=== PATIENT | male | born 1960 | race Caucasian/White ===

== ENCOUNTER → 2017-08-20 | Outpatient (CLI) | payer OTHER ==
[~2017-08-20] MED LIST: AMOCLA875 PO; ATEN100; ATEN100 PO; ATOR40TA PO; CEPH500 PO; HYDACE5; HYDACE5 PO; HYDR1TAB94 PO; IBUP800 PO; LISI5 PO; PSEU120ER PO; RXCEPH500 PO; TRAM50 PO; TRAZ100; Veetids 500500 MG PO
[2017-08-20 17:57] LABS: BASOPHILS ABSOLUTE AUTO 0.02 K/mm3 (0.00-0.23); BASOPHILS PERCENT AUTO 0 % (0-2); EOSINOPHILS ABSOLUTE AUTO 0.12 K/mm3 (0.00-0.68); EOSINOPHILS PERCENT AUTO 2 % (0-6); Hematocrit 40.7 % (37.0-53.0); Hemoglobin 14.1 g/dL (13.5-17.5); IMMATURE GRAN ABSOLUTE AUTO 0.01 K/mm3 (0.00-0.10); IMMATURE GRAN PERCENT AUTO 0 % (0-1); LYMPHOCYTES ABSOLUTE AUTO 2.01 K/mm3 (0.84-5.20); LYMPHOCYTES PERCENT AUTO 38 % (21-46); MONOCYTES ABSOLUTE AUTO 0.32 K/mm3 (0.16-1.47); MONOCYTES PERCENT AUTO 6 % (4-13); Mean Corpuscular HGB 31.6 pg (26.0-34.0); Mean Corpuscular HGB Conc 34.6 g/dL (31.5-36.5); Mean Corpuscular Volume 91 fL (80-100); Mean Platelet Volume 11.6 fL (9.1-12.4); NEUTROPHILS PERCENT AUTO 53 % (41-73); Platelet Count 224 K/mm3 (150-400); RDW Coefficient Variation 12.3 % (11.7-14.2); RDW Standard Deviation 40.9 fL (35.1-46.3); Red Blood Cell Count 4.46 M/mm3 (4.30-5.90); White Blood Cell Count 5.28 K/mm3 (4.00-11.30)
[2017-08-20 18:07] LABS: Alanine Aminotransfer (ALT/SGP 78 U/L (12-78); Albumin, Blood 3.8 g/dL (3.4-5.0); Albumin/Globulin Ratio 1.1 (0.8-1.8); Alk Phos 63 U/L (40-126); Anion Gap 9 mmol/L (6-16); Aspartate Aminotrans (AST/SGOT 70 U/L (12-37); Bilirubin, Total 0.8 mg/dL (0.1-1.0); Blood Urea Nitrogen 10 mg/dL (8-24); Bun/Creatinine Ratio 11.4 (12.0-20.0); CO2, Blood 29 mmol/L (21-32); Calcium, Blood 9.1 mg/dL (8.5-10.1); Chloride, Blood 102 mmol/L (98-108); Creatinine, Blood 0.88 mg/dL (0.60-1.20); Globulin, Blood 3.6 g/dL (2.2-4.0); Glomerular Filtration Rate >60 (60-); Glucose, Blood 106 mg/dL (70-99); Magnesium, Blood 1.7 mg/dL (1.6-2.4); Potassium, Blood 4.1 mmol/L (3.5-5.5); Sodium, Blood 140 mmol/L (136-145); Total Protein, Blood 7.4 g/dL (6.4-8.2)
== END | disposition home or self-care (01) ==
LOC: LAB EV 17:51 → LAB SHORT 17:51
PROVIDERS: Internal Medicine
DX: R19.7 Diarrhea, unspecified (principal)
CPT/HCPCS: 80053; 83735; 85025

== ENCOUNTER 2017-09-16 09:01 | Day surgery (SDC) | payer OTHER | END 2017-09-16 11:15 | disposition home or self-care (01) | LOC: CT 09:01 → ORD 09:01 → CT 10:00 → ORD 11:15 | DX: R06.02 Shortness of breath (principal); R07.9 Chest pain, unspecified; Z53.8 Procedure and treatment not carried out for other reasons; I10 Essential (primary) hypertension; E78.5 Hyperlipidemia, unspecified; F41.9 Anxiety disorder, unspecified; Z87.891 Personal history of nicotine dependence ==

== ENCOUNTER 2020-06-05 05:51 | Day surgery (SDC) | payer OTHER ==
[~2020-06-05] VITALS: Ht 175.3 cm; Wt 104.5 kg
[~2020-06-05 05:51] MED LIST changes: +ALBU90OI INH; +CLON1 PO; +CLOP75 PO; +DICLOFENAC SOD100 GM TP; +LOSA50 PO
--- NOTE | 2020-06-05 09:45 | NUR ---
PT BACK TO RECOVERY ROOM VIA RECLINER AFTER PROCEDURE. RIGHT RADIAL SITE WITH TR BAND IN PLACE. PT ALERT AND ORIENTED, DENIES PAIN OR NEEDS. VSS. REPORT FROM SOLITARIO ZAYAS.
--- NOTE | 2020-06-05 10:11 | NUR ---
TR BAND DEFLATION STARTED, ARM BOARD REMAINS ON FOR SUPPORT. WILL CONTINUE TO MONITOR.
--- NOTE | 2020-06-05 11:01 | NUR ---
TR BAND HAS BEEN FULLY DEFLATED. RIGHT RADIAL SITE SOFT AND NON-TENDER. NO BLEEDING OR SWELLING TO SITE. PT ABLE TO AMBULATE TO AND FROM BATHROOM WITHOUT ASSISTANCE.
--- NOTE | 2020-06-05 11:40 | NUR ---
IC DC'D, CATH INTACT. PT VERBALIZED UNDERSTANDING OF D/C INSTRUCTIONS AND FOLLOW UP INFORMATION. OUT TO CAR VIA WHEELCHAIR, DENIES PAIN OR DISCOMFORT AT TIME OF DISCHARGE
== END 2020-06-05 12:00 | disposition home or self-care (01) ==
LOC: MHTC 05:51
DX: R07.89 Other chest pain (principal); R94.39 Abnormal result of other cardiovascular function study; I11.0 Hypertensive heart disease with heart failure; I50.9 Heart failure, unspecified; E78.00 Pure hypercholesterolemia, unspecified; E66.9 Obesity, unspecified; Z79.82 Long term (current) use of aspirin; Z88.5 Allergy status to narcotic agent; Z88.8 Allergy status to other drugs, medicaments and biological substances; Z87.891 Personal history of nicotine dependence; Z79.02 Long term (current) use of antithrombotics/antiplatelets; Z68.33 Body mass index [BMI] 33.0-33.9, adult
CPT/HCPCS: 85347; 93458; 93571; 99152; 99153; C1769; C1887; C1894; J0153; J1644; J2250; J3010; J7030; J7050; Q9967

== ENCOUNTER 2020-06-13 07:37 | Day surgery (SDC) | payer OTHER ==
--- NOTE | 2020-06-13 10:03 | NUR ---
Patient up to Ambulate independently. Gait steady. Discharge instructions reviewed with patient. Patient verbalizes understanding. Copy given to patient to take home. Discharged via AMBULATION to private car for ride home.
== END 2020-06-13 22:38 | disposition home or self-care (01) ==
LOC: ORD 07:37 → CT 07:37 → ORD 22:38
DX: R07.9 Chest pain, unspecified (principal); I10 Essential (primary) hypertension; E78.5 Hyperlipidemia, unspecified; Z79.82 Long term (current) use of aspirin; Z88.8 Allergy status to other drugs, medicaments and biological substances
CPT/HCPCS: 75574; Q9967

== ENCOUNTER → 2022-10-30 | Outpatient (CLI) | payer OTHER | END | disposition home or self-care (01) | LOC: LAB 17:45 → LAB SHORT 17:45 | DX: H92.12 Otorrhea, left ear (principal) | CPT/HCPCS: 87070; 87205 ==

== ENCOUNTER 2023-04-07 16:45 | Emergency (ER) | payer OTHER ==
[~2023-04-07] VITALS: Ht 175.3 cm; Wt 90.7 kg
[2023-04-07 17:52] LABS: BASOPHILS ABSOLUTE AUTO 0.04 K/mm3 (0.00-0.23); BASOPHILS PERCENT AUTO 1 % (0-2); EOSINOPHILS ABSOLUTE AUTO 0.12 K/mm3 (0.00-0.68); EOSINOPHILS PERCENT AUTO 2 % (0-6); Hematocrit 52.7 % (37.0-53.0); Hemoglobin 18.4 g/dL (13.5-17.5); IMMATURE GRAN ABSOLUTE AUTO 0.02 K/mm3 (0.00-0.10); IMMATURE GRAN PERCENT AUTO 0 % (0-1); LYMPHOCYTES ABSOLUTE AUTO 1.71 K/mm3 (0.84-5.20); LYMPHOCYTES PERCENT AUTO 24 % (21-46); MONOCYTES ABSOLUTE AUTO 0.42 K/mm3 (0.16-1.47); MONOCYTES PERCENT AUTO 6 % (4-13); Mean Corpuscular HGB 32.3 pg (26.0-34.0); Mean Corpuscular HGB Conc 34.9 g/dL (31.5-36.5); Mean Corpuscular Volume 93 fL (80-100); Mean Platelet Volume 11.6 fL (9.1-12.4); NEUTROPHILS ABSOLUTE AUTO 4.72 K/mm3 (1.96-9.15); NEUTROPHILS PERCENT AUTO 67 % (41-73); Platelet Count 211 K/mm3 (150-400); Red Blood Cell Count 5.69 M/mm3 (4.30-5.90); White Blood Cell Count 7.03 K/mm3 (4.00-11.30)
[2023-04-07 18:57] LABS: Albumin, Blood 3.6 g/dL (3.4-5.0); Albumin/Globulin Ratio 0.9 (0.8-1.8); Bilirubin, Total 0.8 mg/dL (0.1-1.0); Bun/Creatinine Ratio 11.1 (12.0-20.0); Calcium, Blood 8.4 mg/dL (8.5-10.1); Creatinine, Blood 0.81 mg/dL (0.60-1.20); Globulin, Blood 4.1 g/dL (2.2-4.0); Potassium, Blood 5.9 mmol/L (3.5-5.5); Total Protein, Blood 7.7 g/dL (6.4-8.2)
[2023-04-07] MEDS ORDERED: METPRE4DP PO (21:25)
[2023-04-07 21:30] VITALS: BP 143/90
== END 2023-04-07 22:01 | disposition home or self-care (01) ==
LOC: ER 16:45
PROVIDERS: Student in an Organized Health Care Education/Training Program
DX: M54.42 Lumbago with sciatica, left side (principal); Z87.891 Personal history of nicotine dependence; I10 Essential (primary) hypertension; E78.00 Pure hypercholesterolemia, unspecified; Z88.8 Allergy status to other drugs, medicaments and biological substances; Z79.899 Other long term (current) drug therapy
CPT/HCPCS: 80053; 85025; 96374; 99283-25; A9270; J1885; J7512

== ENCOUNTER → 2023-11-10 | Outpatient (CLI) | payer OTHER ==
[~2023-11-10] MED LIST changes: +ATOR80 PO; +METPRE4DP PO
== END | disposition home or self-care (01) ==
LOC: LAB 12:19 → LAB SHORT 12:19
DX: N39.0 Urinary tract infection, site not specified (principal)
CPT/HCPCS: 87077; 87086; 87186

== ENCOUNTER 2023-11-21 14:48 | Emergency (ER) | payer OTHER ==
[~2023-11-21] VITALS: Ht 175.3 cm; Wt 77.1 kg
[2023-11-21 14:59] VITALS: BP 127/79
[2023-11-21] MEDS ORDERED: Peg/Electrolytes 4,000 ML BTL PO ONE (17:25)
[2023-11-21] MEDS ORDERED: Glycerin Adult Supp 1 EA PR ONE (17:25)
== END 2023-11-21 18:04 | disposition home or self-care (01) ==
LOC: ER 14:48
DX: K59.00 Constipation, unspecified (principal); I10 Essential (primary) hypertension; E78.00 Pure hypercholesterolemia, unspecified; F17.220 Nicotine dependence, chewing tobacco, uncomplicated; Z79.02 Long term (current) use of antithrombotics/antiplatelets; Z79.899 Other long term (current) drug therapy; Z88.8 Allergy status to other drugs, medicaments and biological substances
CPT/HCPCS: 74018; 99283-25; A9270

== ENCOUNTER → 2023-12-01 | Outpatient (CLI) | payer OTHER ==
[2023-12-01 14:05] LABS: Source, Urine Clean Catch
[2023-12-01 14:19] LABS: Bacteria Not Seen /hpf; Red Blood Cells, Urine Not Seen /hpf (0-2); Squamous Epithelial Cells Rare /hpf (Few); White Blood Cells, Urine 50-100 /hpf (0-5)
== END | disposition home or self-care (01) ==
LOC: LAB SHORT 14:03 → LAB 14:03
PROVIDERS: Physician Assistant Medical
DX: R31.9 Hematuria, unspecified (principal)
CPT/HCPCS: 81015; 87086

== ENCOUNTER 2024-05-30 12:38 | Inpatient (IN) | payer OTHER ==
[~2024-05-30] VITALS: Ht 172.7 cm; Wt 79.4 kg
[~2024-05-30 12:38] MED LIST changes: +ATEN50 PO
[2024-05-30 15:28] LABS: BASOPHILS ABSOLUTE AUTO 0.05 K/mm3 (0.00-0.23); BASOPHILS PERCENT AUTO 1 % (0-2); EOSINOPHILS ABSOLUTE AUTO 0.01 K/mm3 (0.00-0.68); EOSINOPHILS PERCENT AUTO 0 % (0-6); Hematocrit 27.5 % (37.0-53.0); IMMATURE GRAN ABSOLUTE AUTO 0.04 K/mm3 (0.00-0.10); IMMATURE GRAN PERCENT AUTO 1 % (0-1); LYMPHOCYTES ABSOLUTE AUTO 1.46 K/mm3 (0.84-5.20); LYMPHOCYTES PERCENT AUTO 23 % (21-46); MONOCYTES ABSOLUTE AUTO 0.67 K/mm3 (0.16-1.47); MONOCYTES PERCENT AUTO 11 % (4-13); Mean Corpuscular HGB 36.1 pg (26.0-34.0); Mean Corpuscular HGB Conc 36.4 g/dL (31.5-36.5); Mean Corpuscular Volume 99 fL (80-100); NEUTROPHILS ABSOLUTE AUTO 4.06 K/mm3 (1.96-9.15); NEUTROPHILS PERCENT AUTO 65 % (41-73); Platelet Count 154 K/mm3 (150-400); RDW Coefficient Variation 14.4 % (11.7-14.2); RDW Standard Deviation 52.4 fL (35.1-46.3); Red Blood Cell Count 2.77 M/mm3 (4.30-5.90); White Blood Cell Count 6.29 K/mm3 (4.00-11.30)
[2024-05-30 15:47] LABS: Albumin/Globulin Ratio 0.5 (0.8-1.8); Bilirubin, Total 3.1 mg/dL (0.1-1.0); Bun/Creatinine Ratio 13.3 (12.0-20.0); Calcium, Blood 8.1 mg/dL (8.5-10.1); Creatinine, Blood 0.53 mg/dL (0.60-1.20); Globulin, Blood 3.7 g/dL (2.2-4.0); Potassium, Blood 3.4 mmol/L (3.5-5.5); Total Protein, Blood 5.7 g/dL (6.4-8.2)
[2024-05-30 17:12] LABS: Source, Urine Clean Catch
[2024-05-30 17:15] LABS: Appearance, Urine Clear (Clear); Bilirubin, Urine Neg (Neg); Blood, Urine Neg (Neg); Color, Urine Amber (P-Yellow); Glucose Qualitative, Urine Neg (Neg); Ketones, Urine 2+ (Neg); Leukocyte Esterase, Urine Neg (Neg); Nitrite, Urine Neg (Neg); Protein, Urine Neg (Neg); Specific Gravity, Urine 1.005 (1.003-1.022); Urobilinogen, Urine 1+ (Normal); pH, Urine 6.5 (5.0-8.0)
[2024-05-30] MEDS ORDERED: OxyCODONE HCL 5 MG TAB PO PRN (18:35)
[2024-05-30] MEDS ORDERED: LORazepam 2 MG/ML 1ML Injection IV PRN (18:40)
[2024-05-30] MEDS ORDERED: NS 1,000 ML IV SCH (18:40)
[2024-05-30] MEDS ORDERED: Ondansetron HCl 2 MG / ML 2ML Vial IV PRN (18:40)
[2024-05-30] MEDS ORDERED: NS 1,000 ML IV ONE (18:45)
[2024-05-30] MEDS ORDERED: FLU VACC TS2024-25(6MOS UP)/PF 45 MCG/0.5 ML SYRINGE IM ONE (18:45)
[2024-05-30] MEDS ORDERED: ChlordiazePOXIDE 25 MG Cap PO PRN ×2 (18:45)
[2024-05-30] MEDS ORDERED: Potassium Chloride 20 MEQ TabCR PO ONE (19:00)
[2024-05-30] MEDS ORDERED: OxyCODONE HCL 5 MG TAB PO ONE (19:00)
[2024-05-30 19:31] LABS: International Normalized Ratio 1.14; Prothrombin Time Results 12.1 Sec (9.7-11.5)
[2024-05-30 19:33] LABS: Percent Saturation 61.7 % (20.0-50.0)
[2024-05-30] MEDS ORDERED: OXYC5 PO (20:05)
[2024-05-30 20:38] LABS: Base Excess Venous 3.9 mmol/L; Bicarbonate Venous 27.9 mmol/L (24.0-30.0); PCO2 Venous 35.2 mmHg (38-42)
[2024-05-30 21:01] VITALS: BP 142/98
--- NOTE | 2024-05-30 23:45 | NUR ---
HOSPITALIST CONTACT CRITICAL VALUE NOTIFICATION; LACTIC ACID 3.4; INCREASE FROM 2.2. SPOKE WITH CHARGE NURSE AND THEN CALLED THE HOSPITALIST. PT CURRENTLY GETTING FLUIDS. SPOKE TO GREYSON; WHO ADVISES NO NEW ORDER AT THIS TIME. HOSPITALIST NOT CONCERNED ABOUT VALUE AT THIS TIME DUE TO LIVER FUNCTION AND HX OF ETOCH. REPORT GIVEN TO PRIMARY NURSE; IBRAHIMA Lim
[2024-05-31 05:55] LABS: BASOPHILS ABSOLUTE AUTO 0.06 K/mm3 (0.00-0.23); BASOPHILS PERCENT AUTO 1 % (0-2); EOSINOPHILS ABSOLUTE AUTO 0.04 K/mm3 (0.00-0.68); EOSINOPHILS PERCENT AUTO 1 % (0-6); Hematocrit 27.8 % (37.0-53.0); Hemoglobin 9.9 g/dL (13.5-17.5); IMMATURE GRAN ABSOLUTE AUTO 0.04 K/mm3 (0.00-0.10); IMMATURE GRAN PERCENT AUTO 1 % (0-1); LYMPHOCYTES ABSOLUTE AUTO 1.02 K/mm3 (0.84-5.20); LYMPHOCYTES PERCENT AUTO 20 % (21-46); MONOCYTES ABSOLUTE AUTO 0.54 K/mm3 (0.16-1.47); MONOCYTES PERCENT AUTO 11 % (4-13); Mean Corpuscular HGB 36.5 pg (26.0-34.0); Mean Corpuscular HGB Conc 35.6 g/dL (31.5-36.5); Mean Corpuscular Volume 103 fL (80-100); Mean Platelet Volume 10.9 fL (9.1-12.4); NEUTROPHILS ABSOLUTE AUTO 3.37 K/mm3 (1.96-9.15); NEUTROPHILS PERCENT AUTO 66 % (41-73); Platelet Count 148 K/mm3 (150-400); RDW Coefficient Variation 14.6 % (11.7-14.2); RDW Standard Deviation 54.3 fL (35.1-46.3); Red Blood Cell Count 2.71 M/mm3 (4.30-5.90); White Blood Cell Count 5.07 K/mm3 (4.00-11.30)
[2024-05-31] MEDS ORDERED: Pantoprazole Sodium 40 MG Tab PO SCH (06:00)
[2024-05-31 06:19] LABS: Albumin, Blood 2.1 g/dL (3.4-5.0); Albumin/Globulin Ratio 0.6 (0.8-1.8); Bilirubin, Total 4.2 mg/dL (0.1-1.0); Bun/Creatinine Ratio 12.2 (12.0-20.0); Calcium, Blood 8.4 mg/dL (8.5-10.1); Creatinine, Blood 0.49 mg/dL (0.60-1.20); Globulin, Blood 3.6 g/dL (2.2-4.0); Magnesium, Blood 1.8 mg/dL (1.6-2.4); Potassium, Blood 3.8 mmol/L (3.5-5.5); Total Protein, Blood 5.7 g/dL (6.4-8.2)
[2024-05-31] MEDS ORDERED: DiphenhydrAMINE HCl 50 MG Cap PO ONE (06:20)
--- NOTE | 2024-05-31 07:15 | NUR ---
SHIFT SUMMARY PT ARRIVED FROM ED 2234. EXPERIENCED SYCOPAL EPISODE. PT HAS LARGE RASH DOWN RIGHT SIDE OF BODY. PRESSURE WOUND ON LEFT BUTTOCK AND SCRATCH ON RIGHT HIP. THIS RN TOOK PICTURES WHICH ARE IN CHART AND COVERED WITH MEPILEX. PT ALSO HAS BEDBUGS, AND HAS PLACED ON CONTACT ISO. PT HAS BEEN PLEASANT AND COOPERATIVE WITH CARE.
[2024-05-31 08:09] VITALS: BP 134/86
[2024-05-31] MEDS ORDERED: Thiamine HCl 100 MG Tab PO SCH (09:00)
[2024-05-31] MEDS ORDERED: Multivitamins 1 Tab PO SCH (09:00)
[2024-05-31] MEDS ORDERED: Folic Acid 1 MG TAB PO SCH (09:00)
[2024-05-31] MEDS ORDERED: Enoxaparin 40 MG/0.4 ML SYR SC SCH (09:00)
[2024-05-31] MEDS ORDERED: Atenolol 50 MG Tab PO SCH (09:00)
--- NOTE | 2024-05-31 18:26 | NUR ---
SUMMARY- PT A/O X4. ALERT, VERBAL AND PLEASANT. KNOWS LIMITS AND USES THE CALL LIGHT. PT HAS FINE MOTOR TREMOR, PERIODS OF ANXIETY/RESTLESSNESS, CIWA 4-8. MEDICATED WITH LIBRIUM 25MG ONCE THIS SHIFT WHICH PT STATED TOOK OFF THE EDGE OF W/D. PT C/O PAIN IN L LEG AND BACK, OXYCODONE ADMIN ONCE THIS SHIFT WITH GOOD EFFECT. PT TOLERATING FOOD AND FLUID. USING URINAL, CONTINENT OF URINE EXCEPT SPILLES ACCIDENTALLY. ASKS TO USE BED BAN FOR BM, HAD ONE LOOSE DARK BROWN SM. PHYSICAL THERAPY WORKED WITH PT TODAY, SEE NOTES.PT REMAINED ON BEDREST TODAY IN REDQUARDS TO BP ISSUES- OROTHOSTATICS TAKEN AND NOTED BP DROP UPON STANDING. PT ENCOURAGED TO DRINK FLUIDS, ALSO PT HAS IVF NS @75ML/HR. WILL REPORT TO NOC SOLITARIO
[2024-06-01] VITALS (7 sets, daily range): BP systolic 78–118; BP diastolic 57–82
--- NOTE | 2024-06-01 04:04 | NUR ---
SHIFT SUMMARY PATIENT HAD NO ACUTE CHANGES. AXOX 4 AND BEDREST USING BED KEITH AND URINAL. CIWA 9 DOWN TO 7. LIBRIUM 50 MG GIVEN X ONE WITH MILD TREMORS AND HALLUCINATION AT SHIFT CHANGE. PIV INTACT. NS INFUSING @ 75 mL/HR. TELE MONITOR NSR 92. DENIES CHEST PAIN, SOB, AND N/V. CALL LIGHT IN REACH. BED IN LOWEST POSITION. WILL CONTINUE TO MONITOR UNTIL DAY SHIFT NURSE ASSUMES CARE.
[2024-06-01 17:31] LABS: HEPATITIS A ANTIBODY, IGM Negative (Negative); HEPATITIS B CORE ANTIBODY, IGM Negative (Negative); HEPATITIS B SURFACE ANTIGEN Negative (Negative); HEPATITIS C AB CIA INTERP Negative (Negative); HEPATITIS C ANTIBODY CIA INDEX <0.02 IV
--- NOTE | 2024-06-01 18:26 | NUR ---
SHIFT SUMMARY PATIENT A/OX4, ABLE TO MAKE NEEDS KNOWN. ORTHOSTATIC HYPOTENSION NOTED. BEDBATH PROVIDED THIS SHIFT. IV FLUIDS RUNNING PER JUL. PATIENT CONTINUES WITH Q4 ALCOHOL WITHDRAWAL ASSESSMENT. HIGHEST CIWA OF 8 THIS MORNING. PATIENT PLEASANT AND COOPERATIVE. COMPLAINING OF NEUROPATHIC PAIN TO LEFT LEG AND BACK PAIN, MEDICATED TWICE PER JUL. ECHOCARDIOGRAM ORDERED THIS EVENING. NO OTHER CONCERNS AT THIS TIME.
[2024-06-02] VITALS (7 sets, daily range): BP systolic 88–126; BP diastolic 64–86
--- NOTE | 2024-06-02 04:33 | NUR ---
NOC SUMMARY- PT PAIN MANAGED WELL. PT CIWA HIGH WAS 9. PT RESPONDED WELL TO LIBRIUM. PT HAS RESTED COMFORTABLY. PT EATING AND DRINKING. PT VOIDING VIA URINAL. PT CURRENTLY WATCHING TV IN NO DISTRESS. CALL LIGHT IN REACH.
[2024-06-02 06:08] LABS: BASOPHILS ABSOLUTE AUTO 0.04 K/mm3 (0.00-0.23); BASOPHILS PERCENT AUTO 1 % (0-2); EOSINOPHILS PERCENT AUTO 3 % (0-6); Hematocrit 26.4 % (37.0-53.0); IMMATURE GRAN ABSOLUTE AUTO 0.03 K/mm3 (0.00-0.10); IMMATURE GRAN PERCENT AUTO 1 % (0-1); LYMPHOCYTES ABSOLUTE AUTO 0.98 K/mm3 (0.84-5.20); LYMPHOCYTES PERCENT AUTO 28 % (21-46); MONOCYTES ABSOLUTE AUTO 0.41 K/mm3 (0.16-1.47); MONOCYTES PERCENT AUTO 12 % (4-13); Mean Corpuscular HGB 36.6 pg (26.0-34.0); Mean Corpuscular HGB Conc 34.1 g/dL (31.5-36.5); Mean Corpuscular Volume 107 fL (80-100); Mean Platelet Volume 11.7 fL (9.1-12.4); NEUTROPHILS ABSOLUTE AUTO 1.96 K/mm3 (1.96-9.15); NEUTROPHILS PERCENT AUTO 56 % (41-73); Platelet Count 156 K/mm3 (150-400); RDW Coefficient Variation 15.1 % (11.7-14.2); RDW Standard Deviation 59.4 fL (35.1-46.3); Red Blood Cell Count 2.46 M/mm3 (4.30-5.90); White Blood Cell Count 3.52 K/mm3 (4.00-11.30)
[2024-06-02 06:31] LABS: Albumin, Blood 1.8 g/dL (3.4-5.0); Albumin/Globulin Ratio 0.5 (0.8-1.8); Bilirubin, Total 2.2 mg/dL (0.1-1.0); Bun/Creatinine Ratio 7.6 (12.0-20.0); Calcium, Blood 8.3 mg/dL (8.5-10.1); Creatinine, Blood 0.53 mg/dL (0.60-1.20); Globulin, Blood 3.3 g/dL (2.2-4.0); Potassium, Blood 3.6 mmol/L (3.5-5.5); Total Protein, Blood 5.1 g/dL (6.4-8.2)
--- NOTE | 2024-06-02 18:23 | NUR ---
SHIFT SUMMARY PATIENT A/OX4, ABLE TO MAKE NEEDS KNOWN. PLEASANT AND COOPERATIVE WITH CARE. PATIENT CONTINUES WITH SYMPTOMATIC ORTHOSTATIC BLOOD PRESSURE CHANGES. TELEMETRY IN PLACE, NO EVENTS NOTED. WOUND CARE PROVIDED PER ORDERS TO PRESSURE INJURY TO LEFT BUTTOCK AND RASH TO RIGHT SIDE. CIWA Q4 PER ORDER, BELOW 8 TODAY, NOT MEDICATED. ECHOCARDIOGRAM OBTAINED THIS SHIFT. IV FLUIDS RUNNING PER JUL. DISCUSSED WITH DR. RUSSELL PLAN FOR PATIENT THSI SHIFT AND STATES ATENOLOL DISCONTINUED, GIANCARLO HOSE TO BE WORN DURING THE DAY, AND POSSIBILITY OF STARTING MIDODRINE. PATIENT AGREEABLE TO PLAN. NO OTHER CONCERNS AT THIS TIME.
[2024-06-02] MEDS ORDERED: Docusate Sodium 100 MG Cap PO SCH (21:00)
[2024-06-03 02:20] VITALS: BP 118/77
--- NOTE | 2024-06-03 04:07 | NUR ---
Pt slept well this shift. VS WNL, needs to have orthostatic VS done this am. Tele NSR in 80's. CWA 1-2. Pt with significant skin breakdown in groin/lang area, cleansed and cream applied. PO intake WNL, voids using urinal. Unsure what d/c plan is. IVF continues to run NS @75/hr.
[2024-06-03 04:34] VITALS: BP 95/67
[2024-06-03 05:53] LABS: BASOPHILS ABSOLUTE AUTO 0.06 K/mm3 (0.00-0.23); BASOPHILS PERCENT AUTO 1 % (0-2); EOSINOPHILS ABSOLUTE AUTO 0.17 K/mm3 (0.00-0.68); EOSINOPHILS PERCENT AUTO 4 % (0-6); Hematocrit 30.7 % (37.0-53.0); Hemoglobin 10.3 g/dL (13.5-17.5); IMMATURE GRAN ABSOLUTE AUTO 0.04 K/mm3 (0.00-0.10); IMMATURE GRAN PERCENT AUTO 1 % (0-1); LYMPHOCYTES ABSOLUTE AUTO 1.82 K/mm3 (0.84-5.20); LYMPHOCYTES PERCENT AUTO 37 % (21-46); MONOCYTES PERCENT AUTO 10 % (4-13); Mean Corpuscular HGB 36.5 pg (26.0-34.0); Mean Corpuscular HGB Conc 33.6 g/dL (31.5-36.5); Mean Corpuscular Volume 109 fL (80-100); Mean Platelet Volume 12.3 fL (9.1-12.4); NEUTROPHILS ABSOLUTE AUTO 2.27 K/mm3 (1.96-9.15); NEUTROPHILS PERCENT AUTO 47 % (41-73); Platelet Count 191 K/mm3 (150-400); RDW Coefficient Variation 16.3 % (11.7-14.2); RDW Standard Deviation 64.5 fL (35.1-46.3); Red Blood Cell Count 2.82 M/mm3 (4.30-5.90); White Blood Cell Count 4.86 K/mm3 (4.00-11.30)
[2024-06-03 06:13] LABS: Albumin, Blood 2.2 g/dL (3.4-5.0); Albumin/Globulin Ratio 0.6 (0.8-1.8); Bun/Creatinine Ratio 11.1 (12.0-20.0); Calcium, Blood 8.4 mg/dL (8.5-10.1); Creatinine, Blood 0.54 mg/dL (0.60-1.20); Globulin, Blood 3.7 g/dL (2.2-4.0); Potassium, Blood 3.6 mmol/L (3.5-5.5); Total Protein, Blood 5.9 g/dL (6.4-8.2)
[2024-06-03 07:38] VITALS: BP 128/83
[2024-06-03] MEDS ORDERED: Folic Acid 1 MG TAB PO SCH (09:00)
--- NOTE | 2024-06-03 14:45 | NUR ---
PATIENT RESTING, NO S/S OF DISTRESS, RESPS EVEN AND NON LABNORED, CALL LIGHT WITH IN REACH, BM TODAY, WORKED WITH PT TODAY, PLAN FOR MHOME WITH HOME HEALTH
[2024-06-03 15:46] VITALS: BP 131/92
--- NOTE | 2024-06-03 17:49 | NUR ---
NO ACUTE CHANGES, ALERT AND ORIENTED X4, VERY MOTIVATED TODAY, WORKED WITH PT, REPORTING FEELING MUCH BETTER, BM TODAY, CLEARLY MAKES NEEDS KNOWN, MEDICATED FOR PAIN, CIWA 3-4, CALL LIGHT WITH IN REACH, WILL RELAY TO PM RN
[2024-06-03 19:50] VITALS: BP 93/63
[2024-06-04] VITALS (8 sets, daily range): BP systolic 86–132; BP diastolic 58–86
--- NOTE | 2024-06-04 05:55 | NUR ---
SHIFT SUMMARY - NO ACUTE CHANGES THIS SHIFT. PT HAS A GOOD APPETITE AND HAS BEEN DRINKING PO FLUIDS WITHOUT DIFFICULTY - SEE I&O'S. PT INITIALLY REPORTED BEING NERVOUS ABOUT BEING DISCHARGED TODAY - THEN REPORTED THIS AM HE WAS FEELING BETTER ABOUT BEING DISCHARGED. I WILL REPORT OFF AND [employer] SUPERVISOR REPORTED SHE WILL REPORT OFF ORTHOSTATICS ARE ORDERED FOR TODAY. PT MEDICATED FOR PAIN SEVERAL TIMES - SEE EMAR. KATRINA WAS DC'D TONIGHT - CIWA'S HAVE BEEN STABLE. CALL LIGHT WITHIN REACH. BED IN LOW POSITION. FLUIDS AT BEDSIDE. PT MAKES HIS NEEDS KNOWN. PT HAS BEEN PLEASANT AND COOPERATIVE WITH CARE.
[2024-06-04 06:10] LABS: BASOPHILS ABSOLUTE AUTO 0.06 K/mm3 (0.00-0.23); BASOPHILS PERCENT AUTO 1 % (0-2); EOSINOPHILS ABSOLUTE AUTO 0.16 K/mm3 (0.00-0.68); EOSINOPHILS PERCENT AUTO 4 % (0-6); Hematocrit 26.9 % (37.0-53.0); Hemoglobin 9.1 g/dL (13.5-17.5); IMMATURE GRAN ABSOLUTE AUTO 0.06 K/mm3 (0.00-0.10); IMMATURE GRAN PERCENT AUTO 1 % (0-1); LYMPHOCYTES ABSOLUTE AUTO 1.17 K/mm3 (0.84-5.20); LYMPHOCYTES PERCENT AUTO 26 % (21-46); MONOCYTES ABSOLUTE AUTO 0.67 K/mm3 (0.16-1.47); MONOCYTES PERCENT AUTO 15 % (4-13); Mean Corpuscular HGB 37.3 pg (26.0-34.0); Mean Corpuscular HGB Conc 33.8 g/dL (31.5-36.5); Mean Corpuscular Volume 110 fL (80-100); Mean Platelet Volume 12.5 fL (9.1-12.4); NEUTROPHILS ABSOLUTE AUTO 2.39 K/mm3 (1.96-9.15); NEUTROPHILS PERCENT AUTO 53 % (41-73); Platelet Count 175 K/mm3 (150-400); RDW Coefficient Variation 17.3 % (11.7-14.2); RDW Standard Deviation 69.5 fL (35.1-46.3); Red Blood Cell Count 2.44 M/mm3 (4.30-5.90); White Blood Cell Count 4.51 K/mm3 (4.00-11.30)
[2024-06-04 06:47] LABS: Albumin, Blood 1.9 g/dL (3.4-5.0); Albumin/Globulin Ratio 0.6 (0.8-1.8); Bilirubin, Total 1.5 mg/dL (0.1-1.0); Bun/Creatinine Ratio 10.6 (12.0-20.0); Calcium, Blood 8.6 mg/dL (8.5-10.1); Creatinine, Blood 0.47 mg/dL (0.60-1.20); Globulin, Blood 3.2 g/dL (2.2-4.0); Potassium, Blood 3.5 mmol/L (3.5-5.5); Total Protein, Blood 5.1 g/dL (6.4-8.2)
--- NOTE | 2024-06-04 18:16 | NUR ---
NO CHANGES, POSSIBLE DSICHARGE TOMORROW, POSTIVE ORTHOSTAT BP BUT PATIENT REPORTS NO DIZZYNESS, PATIENT REPORTS NOT FEELING WELL AFTER SITTING FOR A LONG PERIOD, PLEASANT TO CARE, ALERT AND OREINTED X4, PLEASANT TO CARE, CALL LIGHT WITH IN REACH
--- NOTE | 2024-06-05 02:56 | NUR ---
SHIFT SUMMARY NO ACUTE EVENTS DURING THIS SHIFT. BP 114/86, P. 89, RR 18, O2 SAT'S 98% ON RA. PT DENIES DISCOMFORT OTHER THAN LE BILATERAL CHRONIC PAIN, AND CHRONIC BACK PAIN. PT WEARING TEDHOSE, RESTING IN BED. MEDICATED Q4HRS WITH OXYCODONE 5MG ORDERED. PT REPORTS THIS IS HIS HOME REGIMEN WELL (NOTED @MED REC Q6HRS). PT IS A/O X4, ABLE TO MAKE HIS NEEDS KNOWN AND COOPERATIVE WITH CARE. PT CONTINUES ON CONTACT ISOLATION. POSSIBLE D/C TO HOME TODAY. BED AT THE LOWEST POSITION, CALL LIGHT W/I REACH.
[2024-06-05 03:42] VITALS: BP 110/73
[2024-06-05 07:11] VITALS: BP 120/75
[2024-06-05] MEDS ORDERED: PANT40 PO (13:29)
--- NOTE | 2024-06-05 15:44 | NUR ---
DISCHARGED HOME, DISCAHRGE INSTRUCTIONS GIVEN TO PATIENT, PATIENT STATED UNDERSTANDING OF FOLLOW UP NEEDS, MEDICATION, AND INSTRUCTIONS, PATIENT DENIED FURTHER QUESTIONS, LEFT VIA W/C, SISTER ACCOMPANIED
== END 2024-06-05 11:52 | disposition home or self-care (01) | DRG 312 ==
LOC: ER 12:38 → MEDS 12:39 → ERHOLD 12:39 → ER 12:39 → MEDS 20:29 → ERHOLD 20:29 → MEDS 06-01 15:07
PROVIDERS: Family Medicine; Nurse Practitioner Acute Care; Student in an Organized Health Care Education/Training Program; ADMIT Internal Medicine
DX: I95.1 Orthostatic hypotension (principal); E87.1 Hypo-osmolality and hyponatremia; E87.20 Acidosis, unspecified; D61.818 Other pancytopenia; E87.6 Hypokalemia; G89.4 Chronic pain syndrome; K21.9 Gastro-esophageal reflux disease without esophagitis; F10.20 Alcohol dependence, uncomplicated; D64.9 Anemia, unspecified
CPT/HCPCS: 36415; 70450; 71045; 71260; 76705; 80053; 80074; 80320; 81003; 82550; 82607; 82728; 82746; 82803; 83540; 83550; 83605; 83690; 83735; 83880; 84443; 84484; 85025; 85379; 85610; 86141; 93005; 93010; 93306; 96372; 97110; 97116; 97161; 97165; 97530; 97535; 99285-25; A9270; G0378; J1650; J7030; Q9967